=== PATIENT | male | born 1950 | race Caucasian/White ===

== ENCOUNTER 2017-04-13 12:32 | Outpatient (CLI) | payer BC ==
--- NOTE | 2017-04-13 14:41 | RAD ---
PA AND LATERAL CHEST: Indication: History of dyspnea. Comparison: 02-12-15 FINDINGS: No confluent airspace opacity or fluid effusions. Chronic lung changes are similar. 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 IMPRESSION: No acute cardiopulmonary abnormality. POS: [facility]
== END 2017-04-13 12:33 | disposition home or self-care (01) ==
LOC: RAD 12:32
PROVIDERS: ATTEND Internal Medicine Pulmonary Disease
DX: R06.00 Dyspnea, unspecified (principal)
CPT/HCPCS: 71020